=== PATIENT | male | born 1965 | race Caucasian/White ===

== ENCOUNTER → 2021-05-29 16:27 | Outpatient (CLI) | payer BC, SELFPAY ==
--- NOTE | ~2021-05-29 | XR_ITS ---
EXAMINATION: XR shoulder LT min 2V DATE: 05/29/2021 16:43 INDICATION: Left shoulder pain. TECHNIQUE: 4 views of left shoulder were obtained. COMPARISON: None. FINDINGS: Bone alignment is normal. No fracture. There is severe osteoarthritis of glenohumeral joint and mild osteoarthritis of acromioclavicular joint. IMPRESSION: 1. Severe glenohumeral joint osteoarthritis. Reviewed, dictated and finalized at location A.
== END ==
PROVIDERS: Visit Provider Orthopaedic Surgery
DX: M19.012 Primary osteoarthritis, left shoulder (principal)
CPT/HCPCS: 73030

== ENCOUNTER 2024-10-06 11:42 | Outpatient (CLI) | payer BC, SELFPAY ==
--- NOTE | ~2024-10-06 | CT_ITS ---
EXAMINATION: CT IAC/mastoids BI wo con DATE: 10/06/2024 12:03 INDICATION: Bilateral tinnitus. TECHNIQUE: Computed tomography (CT) of the temporal bones was performed without intravenous contrast. Automated exposure control and iterative reconstruction technique were employed. The dose-length pro duct was 247.95 mGy-cm. COMPARISON: Head CT 01/26/2014 FINDINGS: RIGHT TEMPORAL BONE: The internal auditory canal, cochlea, vestibule, semicircular canals, vestibular aqueduct, carotid ca nal, jugular bulb, facial nerve course, ossicles, Prussak space, scutum, tympanic membrane, mastoid a ir cells, and external auditory canal are normal. LEFT TEMPORAL BONE: The internal auditory canal, cochlea, vestibule, semicircular canals, vestibular aqueduct, carotid ca nal, jugular bulb, and facial nerve course are normal. There is extensive material in the tympanic ca vity and mastoid air cells including in Prussak space. Scutum is normal. The ossicles are normal. No bone erosions are identified. There is retraction of the tympanic membrane. The external auditory can al is normal. IMPRESSION: 1. Left otomastoid effusion. Reviewed, dictated and finalized at location A. PMENT INSTALLER
== END 2024-10-06 11:43 | disposition home or self-care (01) ==
LOC: MICIMG 11:45
PROVIDERS: PCP Internal Medicine; Visit Provider Nurse Practitioner Family
DX: H93.13 Tinnitus, bilateral (principal)
CPT/HCPCS: 70480

== ENCOUNTER 2025-06-02 08:10 | Outpatient (CLI) | payer BC, SELFPAY ==
--- NOTE | ~2025-06-02 | US_ITS ---
US right upper quadrant Indication: speatotic liver disease Comparison: None Technique: Mack-scale and color Doppler images were obtained. Findings: LIVER: Mild increased echogenicity of the liver. . GALLBLADDER/BILIARY: Unremarkable.No cholelithiais, wall thickening or pericholecystic fluid. No biliary dilatation. CBD 4 mm. [place] sign negative. PANCREAS: Pancreas limited by bowel gas. Right Kidney: Right kidney 13.3 cm, grossly normal. Impression: 1. Mild hepatic steatosis Reviewed, dictated and finalized at location P. Impression: 1. Mild hepatic steatosis
== END 2025-06-02 08:11 | disposition home or self-care (01) ==
PROVIDERS: PCP Family Medicine; Visit Provider Family Medicine
DX: K76.0 Fatty (change of) liver, not elsewhere classified (principal)
CPT/HCPCS: 76705

== ENCOUNTER 2025-07-20 10:14 | Outpatient (CLI) | payer BC, SELFPAY ==
--- NOTE | ~2025-07-20 | CT_ITS ---
EXAMINATION: CT shoulder RT wo con COMPARISON: None HISTORY: Pain in right shoulder TECHNIQUE: Axial images were obtained without IV contrast. Sagittal, coronal reconstruction images were obtained from the axial views. CT scan performed using dose optimization techniques including the following automated exposure control; adjustment of mA and/or kV; use of iterative reconstruction technique. Automatic exposure control was used to reduce radiation dose. Permanent radiation dose record is archived to PACS. FINDINGS: Moderate degenerative changes of the acromioclavicular joint. 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 There is no fracture or dislocation. Artifact limits evaluation but there is no gross joint effusion. No intramuscular hemorrhage or subcutaneous fluid collection noted. The visualized intrathoracic soft tissues appear unremarkable. IMPRESSION: 1. No etiology to explain the patient's pain Reviewed, dictated and finalized at location P. [employer]CHIT[employer]
== END 2025-07-20 10:15 | disposition home or self-care (01) ==
LOC: MICIMG 10:15
DX: M25.511 Pain in right shoulder (principal)
CPT/HCPCS: 73200